=== PATIENT | male | born 1940 | race Caucasian/White ===

== ENCOUNTER 2020-02-15 02:12 | Outpatient (RCR) | payer MEDICARE, OTHER, SELFPAY ==
[2020-02-01 09:57] LABS: Abs Immature Grans 0.03 10^3/uL (0.0-0.06); Absolute Basophil Count 0.05 10^3/uL (0.0-0.2); Absolute Eosinophil Count 0.24 10^3/uL (0.0-0.7); Absolute Lymphocyte Count 0.56 10^3/uL (1.2-3.4); Absolute Monocyte Count 0.04 10^3/uL (0.1-0.8); Basophils % 0.9; Eosinophils % 4.3; HGB 11.9 g/dL (13.5-17.5); Immature Grans % 0.5; Lymphocytes % 10.1; MCH 28.5 pg (27.0-33.0); MCHC 33.1 % (32.0-36.0); MCV 86.3 fL (80-95); Monocytes % 0.7; Neutrophils % 83.5; Nucleated RBC 0 %; Platelet Count 229 10^3/uL (130-400); RBC 4.17 10^6/uL (4.36-5.78); RDW-SD 46.6 fL; WBC 5.52 10^3/uL (4.4-10.8)
[2020-02-01 10:10] LABS: ALT 19 U/L (16-63); AST 11 U/L (15-37); Albumin 3.6 g/dL (3.4-5.0); Alkaline Phosphatase 87 U/L (46-116); Anion Gap 8.4 mmol/L (3-11); BUN 28 mg/dL (7-18); Bilirubin, Total 0.7 mg/dL (0.2-1.0); CO2 26.6 mmol/L (21.0-32.0); CREATININE 1.08 mg/dL (0.70-1.30); Calcium 9.4 mg/dL (8.5-10.1); Chloride 102 mmol/L (98-107); Glucose 143 mg/dL (74-106); Magnesium 1.5 mg/dL (1.8-2.4); Potassium 3.9 mmol/L (3.5-5.1); Sodium 137 mmol/L (136-145); Total Protein 7.5 g/dL (6.4-8.2)
[2020-02-01 10:24] LABS: Diff Comment Agrees w/ Instrument; RBC Morphology Normal
[2020-02-08 10:29] LABS: Abs Immature Grans 0.01 10^3/uL (0.0-0.06); Absolute Basophil Count 0.02 10^3/uL (0.0-0.2); Absolute Eosinophil Count 0.13 10^3/uL (0.0-0.7); Absolute Lymphocyte Count 0.36 10^3/uL (1.2-3.4); Absolute Monocyte Count 0.27 10^3/uL (0.1-0.8); Absolute Neutrophil Count 1.81 10^3/uL (1.2-6.7); Basophils % 0.8; HCT 36.1 % (40.0-50.0); HGB 11.8 g/dL (13.5-17.5); Immature Grans % 0.4; Lymphocytes % 13.8; MCH 29.1 pg (27.0-33.0); MCHC 32.7 % (32.0-36.0); MCV 88.9 fL (80-95); MPV 9.1 fL (8.0-11.0); Monocytes % 10.4; Neutrophils % 69.6; Nucleated RBC 0 %; Platelet Count 130 10^3/uL (130-400); RBC 4.06 10^6/uL (4.36-5.78); RDW 16.3 % (11.8-14.1); RDW-SD 49.4 fL
[2020-02-08 10:41] LABS: ALT 20 U/L (16-63); AST 12 U/L (15-37); Albumin 3.9 g/dL (3.4-5.0); Alkaline Phosphatase 96 U/L (46-116); Anion Gap 10.6 mmol/L (3-11); BUN 25 mg/dL (7-18); Bilirubin, Total 0.6 mg/dL (0.2-1.0); CO2 27.4 mmol/L (21.0-32.0); CREATININE 1.15 mg/dL (0.70-1.30); Calcium 9.3 mg/dL (8.5-10.1); Chloride 102 mmol/L (98-107); Glucose 114 mg/dL (74-106); LDH 128 U/L (85-227); Magnesium 1.4 mg/dL (1.8-2.4); Potassium 3.8 mmol/L (3.5-5.1); Sodium 140 mmol/L (136-145)
== END 2020-02-17 23:59 | disposition home or self-care (01) ==
LOC: INF 02:12
PROVIDERS: Internal Medicine Medical Oncology; PCP Family Medicine; Visit Provider Nurse Practitioner Adult Health
DX: C34.91 Malignant neoplasm of unspecified part of right bronchus or lung (principal)
CPT/HCPCS: 36415; 80053; 83615; 83735; 85025

== ENCOUNTER 2020-03-14 01:11 | Outpatient (RCR) | payer MEDICARE, OTHER, SELFPAY | END 2020-03-19 23:59 | disposition home or self-care (01) | LOC: INF 01:11 | PROVIDERS: PCP Family Medicine; Visit Provider Nurse Practitioner Adult Health | DX: Z53.9 Procedure and treatment not carried out, unspecified reason (principal) ==